=== PATIENT | male | born 2000 | race Caucasian/White ===

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

== ENCOUNTER 2018-08-30 19:52 | Inpatient (IN) | payer OTHER ==
[2018-08-30 21:31] LABS: Amphetamine Screen,Urine Detected (NotDetected); Benzodiazepines Screen,Urine Not Detected (NotDetected); Cocaine Screen,Urine Not Detected (NotDetected); Opiate Screen,Urine Not Detected (NotDetected); Phencyclidine Screen,Urine Not Detected (NotDetected); Tricyclic Antidepressant,Urine Not Detected (NotDetected); Urn Cannabinoid Scrn Detected (NotDetected)
[2018-08-30 21:32] LABS: Barbiturate Screen,Urine Not Detected (NotDetected); Methadone Screen, Urine Not Detected (NotDetected); Oxycodone Screen, Urine Not Detected (NotDetected)
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
[2018-08-30] MEDS ORDERED: ZIPRASIDONE 20 MG VIAL IM PRN (23:17)
[2018-08-30] MEDS ORDERED: MAG HYDROX/AL HYDROX/SIMETH 30 ML CUP PO PRN (23:17)
[2018-08-30] MEDS ORDERED: ACETAMINOPHEN TAB 325 MG TAB PO PRN (23:17)
[2018-08-30] MEDS ORDERED: MAGNESIUM HYDROXIDE 2,400 MG/10 ML CUP PO PRN (23:17)
[2018-08-30] MEDS ORDERED: LORazepam 2 MG/ML INJ IM PRN (23:22)
[2018-08-31] MEDS: LORazepam 1 MG TAB PO PRN ×2 (00:54→12:00)
[2018-08-31 01:33] LABS: Amorphous Sediment,Urine Rare /hpf; Appearance,Urine Clear (Clear); Bacteria,Urine Rare /hpf; Bilirubin,Urine Negative (Negative); Blood,Urine Trace (Negative); Color,Urine Yellow; Glucose,Urine (UA) Negative (Negative); Hyaline Casts,Urine 23 /lpf (0-2); Ketones,Urine 2+ (Negative); Leukocyte Esterase,Urine Small (Negative); Mucus,Urine Occasional /hpf; Nitrite,Urine Negative (Negative); Protein,Urine 2+ (Negative); RBC,Urine 10 /hpf (0-5); Specific Gravity,Urine 1.035 (1.001-1.035); Squamous Epithelial Cell,Urine <1 /hpf (0-4); WBC,Urine 51 /hpf (0-5)
[2018-08-31] MEDS: NICOTINE 14MG/24HR PATCH TRANSDERM SCH ×3 (02:01→10:40)
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
[2018-08-31 09:05] LABS: Basophils # (A) 0.1 k/uL (0-0.2); Basophils % (A) 1 %; Eosinophils # (A) 0.3 k/uL (0-0.7); Eosinophils % (A) 3 %; HCT 48.4 % (39.0-53.0); HGB 15.8 gm/dL (13.0-17.5); Lymphocytes # (A) 1.3 k/uL (1.0-4.8); Lymphocytes % (A) 16 %; MCH 29.2 pg (25.0-35.0); MCHC 32.6 g/dL (31.0-37.0); MCV 89.6 fL (80.0-100.0); Mean Platelet Volume 7.2; Monocytes # (A) 0.5 k/uL (0-1.0); Monocytes % (A) 6 %; Neutrophils # (A) 6.1 k/uL (1.3-7.7); Neutrophils % (A) 72 %; Platelet Count 190 k/uL (150-450); WBC 8.5 k/uL (4.0-11.0)
[2018-08-31 09:31] LABS: ALT 23 U/L (21-72); AST 32 U/L (17-59); African American GFR (CKD) >90 (>60 ml/min/1.73 sqM); Albumin 4.8 g/dL (3.5-5.0); Alkaline Phosphatase 75 U/L (38-126); Anion Gap 8 mmol/L; Blood Urea Nitrogen 16 mg/dL (9-20); Calcium 10.1 mg/dL (8.4-10.2); Carbon Dioxide 29 mmol/L (22-30); Chloride 105 mmol/L (98-107); Glucose 82 mg/dL (74-99); Potassium 4.3 mmol/L (3.5-5.1); Sodium 142 mmol/L (137-145); Total Bilirubin 0.8 mg/dL (0.2-1.3); Total Protein 7.9 g/dL (6.3-8.2)
--- NOTE | 2018-08-31 11:48 | P.HP ---
Psychiatric H&P - . History & Physical: Allergies Allergy/AdvReac Type Severity Reaction Status Date / Time No Known Allergies Allergy Verified 08/31/18 02:46 Vital Signs Temp 97.8 F 08/31/18 06:24 Pulse 83 08/31/18 06:24 Resp 14 08/31/18 06:24 BP 120/66 08/31/18 06:24 Pulse Ox 98 08/30/18 19:56 Intake & Output 08/30/18 08/31/18 08/31/18 18:59 06:59 18:59 Weight 67.132 kg 67.132 kg Laboratory Last Values WBC 8.5 k/uL (4.0-11.0) 08/31/18 08:42 RBC 5.40 m/uL (4.30-5.90) 08/31/18 08:42 Hgb 15.8 gm/dL (13.0-17.5) 08/31/18 08:42 Hct 48.4 % (39.0-53.0) 08/31/18 08:42 MCV 89.6 fL (80.0-100.0) 08/31/18 08:42 MCH 29.2 pg (25.0-35.0) 08/31/18 08:42 MCHC 32.6 g/dL (31.0-37.0) 08/31/18 08:42 RDW 15.0 % (11.5-15.5) 08/31/18 08:42 Plt Count 190 k/uL (150-450) 08/31/18 08:42 Neutrophils % 72 % 08/31/18 08:42 Lymphocytes % 16 % 08/31/18 08:42 Monocytes % 6 % 08/31/18 08:42 Eosinophils % 3 % 08/31/18 08:42 Basophils % 1 % 08/31/18 08:42 Neutrophils # 6.1 k/uL (1.3-7.7) 08/31/18 08:42 Lymphocytes # 1.3 k/uL (1.0-4.8) 08/31/18 08:42 Monocytes # 0.5 k/uL (0-1.0) 08/31/18 08:42 Eosinophils # 0.3 k/uL (0-0.7) 08/31/18 08:42 Basophils # 0.1 k/uL (0-0.2) 08/31/18 08:42 Sodium 142 mmol/L (137-145) 08/31/18 08:42 Potassium 4.3 mmol/L (3.5-5.1) 08/31/18 08:42 Chloride 105 mmol/L (98-107) 08/31/18 08:42 Carbon Dioxide 29 mmol/L (22-30) 08/31/18 08:42 Anion Gap 8 mmol/L 08/31/18 08:42 BUN 16 mg/dL (9-20) 08/31/18 08:42 Creatinine 0.79 mg/dL (0.66-1.25) 08/31/18 08:42 Est GFR (CKD-EPI)AfAm >90 (>60 ml/min/1.73 sqM) 08/31/18 08:42 Est GFR (CKD-EPI)NonAf >90 (>60 ml/min/1.73 sqM) 08/31/18 08:42 Glucose 82 mg/dL (74-99) 08/31/18 08:42 Calcium 10.1 mg/dL (8.4-10.2) 08/31/18 08:42 Total Bilirubin 0.8 mg/dL (0.2-1.3) 08/31/18 08:42 AST 32 U/L (17-59) 08/31/18 08:42 ALT 23 U/L (21-72) 08/31/18 08:42 Alkaline Phosphatase 75 U/L (38-126) 08/31/18 08:42 Total Protein 7.9 g/dL (6.3-8.2) 08/31/18 08:42 Albumin 4.8 g/dL (3.5-5.0) 08/31/18 08:42 TSH 1.710 mIU/L (0.465-4.680) 08/31/18 08:42 Urine Color Yellow 08/30/18 20:47 Urine Appearance Clear (Clear) 08/30/18 20:47 Urine pH 7.0 (5.0-8.0) 08/30/18 20:47 Ur Specific [place] 1.035 (1.001-1.035) 08/30/18 20:47 Urine Protein 2+ (Negative) H 08/30/18 20:47 Urine Glucose (UA) Negative (Negative) 08/30/18 20:47 Urine Ketones 2+ (Negative) H 08/30/18 20:47 Urine Blood Trace (Negative) H 08/30/18 20:47 Urine Nitrite Negative (Negative) 08/30/18 20:47 Urine Bilirubin Negative (Negative) 08/30/18 20:47 Urine Urobilinogen 2.0 mg/dL (<2.0) 08/30/18 20:47 Ur Leukocyte Esterase Small (Negative) H 08/30/18 20:47 Urine RBC 10 /hpf (0-5) H 08/30/18 20:47 Urine WBC 51 /hpf (0-5) H 08/30/18 20:47 Urine WBC Clumps Rare /hpf (None) H 08/30/18 20:47 Ur Squamous Epith Cells <1 /hpf (0-4) 08/30/18 20:47 Amorphous Sediment Rare /hpf (None) H 08/30/18 20:47 Urine Bacteria Rare /hpf (None) H 08/30/18 20:47 Hyaline Casts 23 /lpf (0-2) H 08/30/18 20:47 Urine Mucus Occasional /hpf (None) H 08/30/18 20:47 Urine Opiates Screen Not Detected (NotDetected) 08/30/18 20:47 Ur Oxycodone Screen Not Detected (NotDetected) 08/30/18 20:47 Urine Methadone Screen Not Detected (NotDetected) 08/30/18 20:47 Ur Propoxyphene Screen Not Detected (NotDetected) 08/30/18 20:47 Ur Barbiturates Screen Not Detected (NotDetected) 08/30/18 20:47 U Tricyclic Antidepress Not Detected (NotDetected) 08/30/18 20:47 Ur Phencyclidine Scrn Not Detected (NotDetected) 08/30/18 20:47 Ur Amphetamines Screen Detected (NotDetected) H 08/30/18 20:47 U Methamphetamines Scrn Not Detected (NotDetected) 08/30/18 20:47 U Benzodiazepines Scrn Not Detected (NotDetected) 08/30/18 20:47 Urine Cocaine Screen Not Detected (NotDetected) 08/30/18 20:47 U Marijuana (THC) Screen Detected (NotDetected) H 08/30/18 20:47 08/31/18 11:37 IDENTIFYING DATA: This patient is a 17-year-old single male who was admitted to the mental health unit through the emergency room for suicidal and homicidal ideation as well as aggressive behavior. HPI: The patient was admitted after he had made statements that he wanted to shoot himself with a gun and he also made statements of harming his parents. He had been verbally and physically aggressive at home. The police were called and the patient was transported to the hospital. He states that this all started after recent relationship discord in the home involving his girlfriend and his brother's girlfriend. He states his brother's girlfriend was quite antagonizing to everyone in the home. The patient's brother and his brother's girlfriend moved out and he states things were better but there were still discord. He describes his parents as not listening to him not caring and preferring that he isolates in his room. He describes his mood as being sad he states he's been tearful on a weekly basis. He indicates his sleep appetite and energy are stable. He states he did make suicidal thoughts to see what his parents would do. He does admit to having feelings of anger he admits that he had been punching things. The patient signed a consent allowing us to speak with his mother. His mother and father were on the call together. They indicate that the patient came home the other day from work he was angry they found him on top of his girlfriend who was yelling for help. The patient began punching doors punching his father in using profanity. His mother states that he had been demonstrating behavioral changes over the last 1.5 months. The patient told her he was hearing voices he could look down at himself as sort of an out of body experience. He reported to his mother he was doing things he couldn't control and made threats of harming himself and them. They describe their son as someone who is happy go chin and friendly. There has been some suspicion he may have been experiencing hallucinations at a younger age. They indicate that he is typically a nonviolent person. His father states they do have several firearms in the home but they're locked in a safe and they were untouched by the patient. PAST PSYCHIATRIC HISTORY: Her inpatient psychiatric hospitalizations, no history of suicide attempts he's never been prescribed any psychotropic medication. He does have a therapist that sees the patient in the home and has visited approximate 4 times. They called this individual yesterday when the patient was aggressive. The patient's mother states that his current therapist feels that he may have dissociative identity disorder. 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 ALLERGIES: NO KNOWN DRUG ALLERGIES MEDICATIONS: None CHEMICAL DEPENDENCY HISTORY: The patient reports no use of alcohol. He reports using marijuana on a daily basis. He states he will use ecstasy at least monthly for the last few years. No use of methamphetamine but he will use Adderall monthly. He states he was using acid and mushrooms but none in the last 2 months. He's never been placed in residential treatment for chemical dependency reasons. FAMILY PSYCHIATRIC HISTORY: None reported other than maternal grandfather committing suicide FAMILY CHEMICAL DEPENDENCY HISTORY: None reported SOCIAL HISTORY: The patient is 17 years old she single he has no children he resides with both parents in [place]. He graduated high school through an alternative schooling program he did have special education help. 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 The patient has 1 older brother. No history of service. Recreationally the patient likes music he states he enjoys composing it electronically. Legal history arrested for possession of marijuana no abuse history MENTAL STATUS EXAM: The patient is a thin male appearing his stated age. He does have some cystic acne he has long hair. Eye contact is intermittent. He is dressed in his own clothing. He shakes his legs constantly throughout our interaction. He describes his mood as being "sad" he is tearful several times during the session and then reconstitutes. He admits to making suicidal and homicidal statements yesterday but states he does not feel that way now. There is some bizarre quality to how he explains the events precipitating this admission. There is a flavor of paranoia as he describes the story. Overtly he denies being watched followed or fearing for his safety. He endorses no ideas of reference. Thought process can be linear he can be circumstantial or tangential at times. He demonstrates no loose associations or flight of ideas. He demonstrates no verbal or physical aggressiveness he demonstrates no involuntary repetitive movements. STRENGTHS/WEAKNESSES: Strengths: Support from parents, housing, employment weaknesses: Substance use INTELLECTUAL FUNCTIONING: Below average IMPRESSIONS: [] 1. Psychosis unspecified, rule out substance-induced psychosis, rule out primary psychotic etiology, cannabis use disorder rule out stimulant and hallucinogen use disorders 2. History of craniosynostosis PLAN: The patient has been admitted to the mental health unit he is willing to sign in voluntarily. We reviewed his presenting symptoms and treatment options. I we will proceed with prescribing Abilify 10 mg daily to reduce symptoms of psychosis. I did have a lengthy discussion with the patient's parents with his written permission he has been seen by internal medicine for routine history and physical exam. Social work has met with the patient to complete a psychosocial assessment. He is instructed to participate fully in groups we will monitor him for safety and encourage full participation in the milieu we will discuss his use of substances and consider inpatient chemical dependency treatment. We will involve his family in treatment and discharge planning as he will allow.
[2018-08-31] MEDS: ARIPiprazole 10 MG TAB PO SCH (12:00)
[2018-09-01] MEDS: ARIPiprazole 10 MG TAB PO SCH (08:45)
[2018-09-01] MEDS: NICOTINE 14MG/24HR PATCH TRANSDERM SCH (08:45)
--- NOTE | 2018-09-01 10:18 | P.PN ---
Progress Note - Text Interval history: The patient is found in group he follows me to an interview room. He indicates that his mood is calm and that he is trying to remain positive. He states he is trying to "balance my personal needs with yours". He indicates he slept yesterday and needed to catch up on sleep. Appetite stable. He did have a phone conversation with his parents which she found supportive. He indicates that they need to work on their communication. He has no questions or concerns regarding the Abilify. At length we discussed the need for him to discontinue use of marijuana and other illicit drugs. Mental status exam: The patient is found in group he seated calmly and appeared distracted. In observing his gait he keeps his head forward and there is no arm swing. Once seated in the interview room eye contact is intermittent. He seems to look from side to side. He has some spontaneous speech but mainly answers questions asked. There are some exaggerated pauses. He demonstrates tearfulness during the session but does quickly reconstitute. He reports no thoughts of self-harm or harm to others he is endorsing no auditory or visual hallucinations or specific delusions. It may be that he is experiencing some delusional thought content that he is not disclosing. He demonstrates no verbal or physical aggressiveness. There are no observed involuntary repetitive movements. He remains oriented to person place and date. Plan: The patient will continue on the Abilify as written. We may consider titrating the dose. We anticipate his family will visit this evening. We will look further input after that visit. We will discuss his progress during treatment team. We will continue to monitor him for safety. Vital signs reviewed.
[2018-09-01] MEDS: LORazepam 1 MG TAB PO PRN (19:29)
[2018-09-02] MEDS: NICOTINE 14MG/24HR PATCH TRANSDERM SCH (08:06)
[2018-09-02] MEDS: ARIPiprazole 10 MG TAB PO SCH (08:06)
--- NOTE | 2018-09-02 10:04 | P.PN ---
Progress Note - Text Interval history: The patient is found in group he follows me to an interview room. He describes some feelings of frustration that he still here on the mental health unit. He indicates that his parents did visit last night. He states it was a very emotional visit but a good visit. Later in the session he states that nursing had to remove him from the visit due to his reactions. He indicates he was not loud or aggressive. I will confer with staff during treatment team meeting to discuss further. He indicates he sleeping at night indicates appetite stable. He reports attending groups but for the most part passively. We reviewed his psychotropic medication we discussed titrating the Abilify further he offers no objection. Mental status exam: The patient is alert he is dressed in his own clothing. He has long hair he is wearing it down today. Eye contact is poor he frequently looks down or to the side. He demonstrates mild psychomotor slowing. Speech is fluent. He provides answers to questions but has little spontaneous speech. He asks "what state do want to put me in before I can leave?". He reports no thou ghts of self-harm or harm to others. He is indicating no symptoms of psychosis however he may be underreporting. He demonstrates no verbal or physical aggressiveness. He does become tearful during the session. Insight and judgment limited. Plan: I will increase the patient's Abilify to 15 mg daily. We will confer with his family regarding last night visit. At treatment team meeting we'll discuss the patient's participation in behavior over the last 24 hours. Vital signs reviewed. We will continue to monitor him for safety and encourage full participation in the milieu. I suspect that he is underreporting symptoms of psychosis but we will continue to evaluate.
[2018-09-03] MEDS: NICOTINE 14MG/24HR PATCH TRANSDERM SCH (08:15)
[2018-09-03] MEDS: ARIPiprazole 15 MG TAB PO SCH (08:15)
--- NOTE | 2018-09-03 10:19 | P.PN ---
Progress Note - Text Interval history: The patient is found in group he follows me to an interview room. He indicates his mood is better. He states his thoughts are flowing better. He states he can "feel the Abilify". He states he's had good conversations with his parents and they're hoping to have him home soon. He continues to report his desire to be discharged soon. He is describing no side effects from the Abilify. He states he slept well last night staff recorded he slept 5 hours. He indicates his appetite is stable. He has been attending groups. Mental status exam: The patient is a thin male. He has long hair but has pulled back today. Eye contact is much improved. Affect is brighter he is more interactive in discussion up until we discuss discharge planning. He reports his mood is improving. He denies having any acute suicidal or homicidal ideation intent or plan. He is reporting no auditory or visual hallucinations. Again he may be withholding no symptoms. Insight and judgment limited. He is demonstrating no verbal or physical aggressiveness. He demonstrates no involuntary repetitive movements. Plan: The patient will continue on the Abilify which is just been increased to 15 mg daily. He is demonstrating some clinical improvement. We will continue monitoring her for safety. Social work will be asked to arrange a support meeting. If he demonstrates further improvement/stability he may be appropriate for discharge as soon as Thursday. Vital signs reviewed.
[2018-09-03] MEDS: LORazepam 1 MG TAB PO PRN (19:44)
[2018-09-04] MEDS: ARIPiprazole 15 MG TAB PO SCH (08:26)
[2018-09-04] MEDS: NICOTINE 14MG/24HR PATCH TRANSDERM SCH (08:26)
--- NOTE | 2018-09-04 13:02 | P.PN ---
Progress Note - Text Progress Note Date: 09/04/18 Interval history: Patient was seen in cross coverage today. Reports that his mood is doing better. He feels like he can focus better on the Abilify. He does not voice any adverse side effects. He does say he is excited for a family meeting tomorrow. Mental status exam: He is alert and cooperative with the interview. Speech is fluent, not rapid or pressured. Thought processes are organized. His mood appears improved. He denies any thoughts of harm to self or others. He denies any hallucinations. He does not make any delusional statements. Plan: Patient will be maintained on current psychotropic medication regimen continue to monitor for any medication side effects and monitor his ongoing response to treatment. We'll continue to cover this patient through the weekend.
[2018-09-05 06:44] VITALS: PULSE 56; RESP 18
[2018-09-05] MEDS: ARIPiprazole 15 MG TAB PO SCH (08:13)
[2018-09-05] MEDS: NICOTINE 14MG/24HR PATCH TRANSDERM SCH (08:13)
--- NOTE | 2018-09-05 13:42 | P.PN ---
Progress Note - Text Progress Note Date: 09/05/18 Interval history: Patient is seen again in cross coverage today. He reports that his mood is doing better. He did have a good supportive meeting with his family today. He slept well last night. He seems to be eating well. He is attending groups. He does not voice any adverse psychotropic medication side effects. He does describe having some nightmares but does not think is related to medication. Mental status exam: He is alert and cooperative with the interview. His speech is fluent, not rapid or pressured. Thought processes are organized. He denies any thoughts of harm to self or others. He does not report need delusions or loosening. He does not show any agitation. Plan: Patient be maintained on current psychotropic medication regimen. He is showing improved status. Continue to monitor for any medication side effects and ongoing response to treatment.
[2018-09-06 07:06] VITALS: BP 135/80; TEMP 97.8
[2018-09-06] MEDS: ARIPiprazole 15 MG TAB PO SCH (08:02)
[2018-09-06] MEDS: NICOTINE 14MG/24HR PATCH TRANSDERM SCH ×2 (08:11→12:13)
--- NOTE | 2018-09-06 08:59 | P.DS ---
Providers Date of admission: 08/30/18 23:16 Expected date of discharge: 09/06/18 Attending physician: Marvel Layne Consults: 08/31/18 06:50 Consult Physician Routine Consulting Provider: Ester Collazo Consult Reason/Comments: H & P medical management Do you want consulting provider notified?: Already Contacted Primary care physician: Rolando Reedudi - Discharge Diagnosis(es) (1) Unspecified psychosis Current Visit: Yes Status: Acute Priority: High (2) Cannabis use disorder, moderate, dependence Current Visit: Yes Status: Acute Priority: Medium Hospital Course: Brief summary of admission note: This patient is a 17-year-old single male who was admitted to the mental health unit her suicidal and homicidal ideation as well as aggressive behavior. The patient made statements that he wanted to shoot himself with a gun and made statements of harming his parents. He had been verbally and physically aggressive at home. The police were called and the patient was transported to the hospital. He reports stressors include recent relationship discord in the home involving his brother's girlfriend in his own girlfriend. He describes thoughts his parents were not listening to him and didn't care for him. He described feeling tearful on a regular basis. He reported feelings of anger that were more difficult to control and he had been punching things. Additionally the patient admitted that he had been using several substances. He reported using marijuana daily basis he was using ecstasy at least monthly he would use Adderall acid and mushrooms. He did have amphetamines and marijuana in his urine drug screen upon presentation. For full details please refer to my psychiatric evaluation dated 08/31/2018. Summary of hospital course: The patient was admitted to the mental health unit he did sign in voluntarily. He signed a consent allowing us to speak with his parents. I called and spoke with his mother and father. They provided collateral information. We discussed the patient's use of substances which they were unaware of. We decided to initiate Abilify to treat his symptoms of psychosis and the may serve as a mood stabilizer. The patient was cooperative with the medication recommendation and has reported that the medication has helped him. He was seen by internal medicine for routine history and physical exam. He has been participating in the milieu he is demonstrated no agitated behavior. abrasive worker spent with the patient to complete a psychosocial assessment arrange a support meeting and for discharge planning purposes. Social work facilitated a support meeting over the weekend those notes were reviewed. At this time the patient feels he is safe to return home. He states he's had good visits with his family over the weekend. He reports no suicidal or homicidal ideation intent or plan. Mental status exam: The patient is alert he presents with adequate hygiene grooming. He is seated calmly in the chair. Eye contact is appropriate. Affect is brighter. He reports his mood is good. Affect is congruent. He denies having any suicidal or homicidal ideation intent or plan. He reports no auditory or visual hallucinations or any specific delusions. There is no observed evidence of psychosis at this time. He demonstrates no tangential thinking loose associations or flight of ideas. He does not appear hypomanic or manic. He demonstrates no verbal or physical aggressiveness. He demonstrates no involuntary repetitive movements. He describes future oriented thinking as he plans to return home and spend time with his family and return to work. He is oriented to person place and date. Impressions 1. Psychosis unspecified, rule out substance-induced psychosis, rule out primary psychotic etiology, cannabis use disorder, rule out stimulant and hallucinogen use disorders Plan: The patient will be discharged mental health unit today to return residing with his parents. In my conversation with his parents they have confirmed that the weapons in the home are secure and not accessible by the patient. Social work will assist in arranging outpatient follow-up for mental health services. The patient will continue on Abilify 15 mg daily. The patient is instructed to abstain from any use of alcohol marijuana or any illicit drug. We discussed that this will provoke symptoms of psychosis and mood instability as well as elevate his safety risk. He does not wish to participate in inpatient chemical dependency treatment. At this time there is no imminent safety risk he is appropriate for transition back to outpatient care. He is instructed to return to the hospital if any acute safety concerns. Patient Condition at Discharge: Stable Plan - Discharge Summary Discharge Rx Participant: No New Discharge Prescriptions: New ARIPiprazole [Abilify] 15 mg PO DAILY #30 tab Nicotine 14Mg/24Hr Patch [Habitrol] 1 patch TRANSDERM DAILY #14 patch Discharge Medication List ARIPiprazole [Abilify] 15 mg PO DAILY #30 tab 09/06/18 [Rx] Nicotine 14Mg/24Hr Patch [Habitrol] 1 patch TRANSDERM DAILY #14 patch 09/06/18 [Rx] Follow up Appointment(s)/Referral(s): Rolando Ballesteros MD [Primary Care Provider] - 1-2 days Activity/Diet/Wound Care/Special Instructions: Activity and diet as tolerated. NO guns or weapons in the home. REFRAIN from alcohol and drugs not prescribed by your physician. Attend all follow up appointments as scheduled. Take all medications as prescribed. If in need of medication refills, please go to your primary care physician, or to your out patient psychiatric provider. If in crisis, please call , or go to the nearest ER.
== END 2018-09-06 13:42 | disposition home or self-care (01) | DRG 885 ==
LOC: EC 19:52 → SUPCPDRO 19:52 → 3MHU 23:16
PROVIDERS: ADMIT Psychiatry & Neurology Psychiatry; ATTEND Psychiatry & Neurology Psychiatry
DX: F29 Unspecified psychosis not due to a substance or known physiological condition (principal); R45.851 Suicidal ideations; R45.850 Homicidal ideations; F12.20 Cannabis dependence, uncomplicated; S40.811A Abrasion of right upper arm, initial encounter; L70.0 Acne vulgaris; F17.210 Nicotine dependence, cigarettes, uncomplicated; Z71.6 Tobacco abuse counseling; Z87.798 Personal history of other (corrected) congenital malformations
CPT/HCPCS: 80053; 80306; 81001; 82075; 84443; 85025; 99285

== ENCOUNTER 2019-07-08 03:01 | Inpatient (IN) | payer MEDICAID, OTHER ==
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
[2019-07-08 04:52] LABS: Amphetamine Screen,Urine Not Detected (NotDetected); Barbiturate Screen,Urine Not Detected (NotDetected); Benzodiazepines Screen,Urine Not Detected (NotDetected); Cocaine Screen,Urine Not Detected (NotDetected); Methadone Screen, Urine Not Detected (NotDetected); Opiate Screen,Urine Not Detected (NotDetected); Oxycodone Screen, Urine Not Detected (NotDetected); Phencyclidine Screen,Urine Not Detected (NotDetected); Tricyclic Antidepressant,Urine Not Detected (NotDetected); Urn Cannabinoid Scrn Detected (NotDetected)
[2019-07-08] MEDS ORDERED: LORazepam 2 MG/ML INJ IM STA (04:52)
[2019-07-08] MEDS ORDERED: diphenhydrAMINE 50 MG/ML 1 ML VIAL IM STA (04:52)
[2019-07-08] MEDS ORDERED: MAGNESIUM HYDROXIDE 2,400 MG/10 ML CUP PO PRN (06:19)
[2019-07-08] MEDS ORDERED: MAG HYDROX/AL HYDROX/SIMETH 30 ML CUP PO PRN (06:19)
[2019-07-08 06:57] LABS: Appearance,Urine Clear (Clear); Bilirubin,Urine Negative (Negative); Blood,Urine Negative (Negative); Color,Urine Light Yellow; Glucose,Urine (UA) Negative (Negative); Ketones,Urine 1+ (Negative); Leukocyte Esterase,Urine Negative (Negative); Nitrite,Urine Negative (Negative); Protein,Urine Negative (Negative); Specific Gravity,Urine 1.008 (1.001-1.035); Urobilinogen,Urine <2.0 mg/dL (<2.0)
[2019-07-08] MEDS: NICOTINE 14MG/24HR PATCH TRANSDERM SCH (08:52)
[2019-07-08 11:58] LABS: Basophils % (A) 0 %; Eosinophils # (A) 0.1 k/uL (0-0.7); Eosinophils % (A) 1 %; HCT 48.2 % (39.0-53.0); HGB 16.5 gm/dL (13.0-17.5); Lymphocytes # (A) 2.5 k/uL (1.0-4.8); Lymphocytes % (A) 26 %; MCH 30.2 pg (25.0-35.0); MCHC 34.2 g/dL (31.0-37.0); MCV 88.4 fL (80.0-100.0); Mean Platelet Volume 7.5; Monocytes # (A) 0.5 k/uL (0-1.0); Monocytes % (A) 5 %; Neutrophils % (A) 64 %; Platelet Count 220 k/uL (150-450); RBC 5.45 m/uL (4.30-5.90); RDW 12.7 % (11.5-15.5); WBC 9.4 k/uL (4.0-11.0)
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
[2019-07-08 12:45] LABS: ALT 16 U/L (4-49); AST 32 U/L (17-59); African American GFR (CKD) >90 (>60 ml/min/1.73 sqM); Albumin 4.6 g/dL (3.5-5.0); Alkaline Phosphatase 65 U/L (38-126); Anion Gap 8 mmol/L; Bilirubin,Unconjugated 0.9 mg/dL (0.0-1.1); Blood Urea Nitrogen 13 mg/dL (9-20); Calcium 10.1 mg/dL (8.4-10.2); Carbon Dioxide 28 mmol/L (22-30); Chloride 104 mmol/L (98-107); Cholesterol 140 mg/dL (<200); Glucose 74 mg/dL (74-99); HDL Cholesterol 51 mg/dL (40-60); LDL Cholesterol,Calculated 73 mg/dL (0-99); Non-African American GFR(CKD) >90 (>60 ml/min/1.73 sqM); Potassium 4.4 mmol/L (3.5-5.1); Sodium 140 mmol/L (137-145); Total Bilirubin 0.8 mg/dL (0.2-1.3); Total Protein 7.4 g/dL (6.3-8.2); Triglycerides 80 mg/dL (<150)
--- NOTE | 2019-07-08 14:56 | P.MDCNMH ---
History of Present Illness H&P Date: 07/08/19 Chief Complaint: Suicidal and homicidal ideations 18-year-old male presented to the hospital because of aggressive behavior at home as well as suicidal ideation. He just found out that his girlfriend was treated on him. He has been refusing to take any psych meds. He does not have any other health conditions. Currently denies having any chest pain or any other pain, no shortness of breath. No dizziness, no weakness, no nausea or vomiting. No recent illness. No fevers or chills. No diarrhea. No urinary symptoms. Review of Systems Complete review of system performed, pertinent positives per HPI, otherwise negative Past Medical History Additional Past Medical History / Comment(s): cranial cystosis, DID History of Any Multi-Drug Resistant Organisms: None Reported Additional Past Surgical History / Comment(s): head sx Past Psychological History: No Psychological Hx Reported Smoking Status: Current every day smoker Past Alcohol Use History: None Reported Past Drug Use History: None Reported Medications and Allergies Home Medications Medication Instructions Recorded Confirmed Type ARIPiprazole [Abilify] 15 mg PO DAILY #30 tab 09/06/18 Rx Nicotine 14Mg/24Hr Patch [Habitrol] 1 patch TRANSDERM DAILY #14 patch 09/06/18 Rx Allergies Allergy/AdvReac Type Severity Reaction Status Date / Time No Known Allergies Allergy Verified 07/08/19 03:14 Physical Exam Vitals: Vital Signs Temp Pulse Pulse Resp BP BP Pulse Ox 07/08/19 12:00 98.5 F 07/08/19 06:51 97.8 F 103 H 18 113/72 95 07/08/19 06:00 92 20 168/78 98 07/08/19 03:05 98 F 98 20 180/87 97 Intake and Output 07/07/19 07/08/19 07/08/19 22:59 06:59 14:59 Other: Weight 63.866 kg Constitutional: No acute distress, conversant, pleasant Eyes:Anicteric sclerae, moist conjunctiva, no lid-lag, PERRLA, ENMT: Oropharynx clear, no erythema, exudates Neck: Supple, FROM, no masses, or JVD, No carotid bruits, No thyromegaly Lungs: Clear to auscultation, Clear to percussion, Normal respiratory effort, no accessory muscle use Cardiovascular: Heart regular in rate and rhythm, No murmurs, gallops, or rubs, No peripheral edema Abdominal: Soft, Nontender, no guarding, rebound or rigidity, Normoactive bowel sounds, No hepatomegaly, No splenomegaly, No palpable mass Skin: Normal temperature, tone, texture, turgor, no induration, No subcutaneous nodules, No rash, lesions, No ulcers Extremities: No digital cyanosis, No clubbing, Pedal pulses intact and symmetrical, Radial pulses intact and symmetrical, No calf tenderness Neuro: Muscles Strength 5/5 in all 4 extremities, Sensation to light touch grossly present throughout, Cranial nerves II-XII grossly intact, no focal sensory deficits Cranial Nerve Examination - Cranial Nerves Cranial Nerve II- Optic: Intact Cranial Nerve III- Oculomotor: Intact Cranial Nerve IV- Trochlear: Intact Cranial Nerve V- Trigeminal: Intact Cranial Nerve - Abducens: Intact Cranial Nerve VII- Facial: Intact Cranial Nerve VIII- Auditory: Intact Cranial Nerve IX- Glossopharyngeal: Intact Cranial Nerve X- Vagus: Intact Cranial Nerve XI- Accessory: Intact Cranial Nerve XII- Hypoglossal: Intact Results CBC & Chem 7: 07/08/19 11:21 07/08/19 11:21 Labs: Abnormal Lab Results - Last 24 Hours (Table) 07/08/19 07/08/19 Range/Units 04:25 04:25 Urine Ketones 1+ H (Negative) U Marijuana (THC) Screen Detected H (NotDetected) Assessment and Plan Plan: Suicidal and homicidal ideations Management per psychiatry Routine health maintenance TSH, CMP, CBC, UA all okay Awaiting A1c Marijuana abuse and smoking Patient advised to quit
[2019-07-08] MEDS: LORazepam 1 MG TAB PO PRN (17:12)
[2019-07-08] MEDS: ZIPRASIDONE 20 MG VIAL IM PRN (17:50)
[2019-07-08 20:02] LABS: Hemoglobin A1C 5.3 % (4.0-6.0)
[2019-07-09] MEDS: NICOTINE 14MG/24HR PATCH TRANSDERM SCH (08:28)
[2019-07-09] MEDS: LORazepam 1 MG TAB PO PRN ×2 (08:28→17:04)
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
[2019-07-09] MEDS: lamoTRIgine 25 MG TAB PO SCH ×2 (09:12→21:02)
[2019-07-10] MEDS: LORazepam 1 MG TAB PO PRN (00:23)
[2019-07-10] MEDS: lamoTRIgine 25 MG TAB PO SCH ×2 (08:57→21:28)
[2019-07-10] MEDS: NICOTINE 14MG/24HR PATCH TRANSDERM SCH (08:57)
--- NOTE | 2019-07-10 11:00 | P.PN ---
Progress Note - Text Progress Note Date: 07/10/19 Interval history: Patient was seen wandering the hallways and was directable and agreeable to s peak with commercial real estate underwriter. Patient appeared to be somewhat cooperative however was mildly bizarre in some of his answers. Patient was logical however was concrete. He states that his mood is "getting there". He claims that he hasn't felt much of the effect of the Lamictal at this point however hesitant in taking it. He denies any rashes at this time and has been monitoring skin. He admits to some anxiety at times. He states that he slept well last night. At this time patient denies any suicidal or homicidal ideations intent or plan. Denies any Auditory or visual hallucinations. Patient denies any side effects from the medications and has been compliant with meds. Mental status exam: General Appearance: Patient appears to be older than stated age is alert, attempts to cooperate is directable and attempts to cooperate. Patient has long hair and appears to have poor hygiene. Behavior: No agitated behavior. Patient is calm and directable appears less anxious. Speech: Patient's speech is fluent and nonpressured. Mood/Affect: Mood is improving mildly, affect is congruent Suicidality/Homicidality: Patient denies having any suicidal or homicidal ideation intent or plan. Perceptions: Patient denies any auditory or visual hallucinations. Though content/process: There is no evidence of any delusional thought content and thought process is linear and goal-directed. Memory and concentration: AOX3, grossly intact for the purposes of this session Judgment and insight: Poor Assessment/Plan: Continue with current diagnosis. Patient continues to meet criteria for inpatient psychiatric admission for symptom stabilization and safety. Will increase Lamictal 25 mg twice a day for mood stabilization/depression. At this time patient is not willing to take an antipsychotic. Monitor for medication compliance and for any psychotropic medication side effects. Will continue to monitor ongoing response to treatment. Encouraged participation in milieu.
[2019-07-10] MEDS: ACETAMINOPHEN TAB 325 MG TAB PO PRN (21:30)
[2019-07-11] MEDS: NICOTINE 14MG/24HR PATCH TRANSDERM SCH (08:45)
[2019-07-11] MEDS: lamoTRIgine 25 MG TAB PO SCH ×2 (08:45→21:40)
--- NOTE | 2019-07-11 12:07 | P.PN ---
Subjective Progress Note Date: 07/11/19 The patient seen in the chart was reviewed. The patient reports doing "good". The patient reports fair sleep and appetite. He reports attending milieu therapy and and participates in groups. The patient reports good sleep and appetite. He continues to show some bizarre behavior but denies any auditory or visual hallucinations at this time. The patient's his stated mood was good and affect was less constricted. The patient denies any auditory or visual hallucinations although at times appears to be responding to internal cues. The patient denies any suicidal or homicidal ideations at this time. He denies any side effects on the medications. Objective - Vital Signs Vital signs: Vital Signs Temp 98.2 F 07/11/19 06:15 Pulse 123 H 07/11/19 06:15 Resp 16 07/11/19 06:15 BP 134/85 07/11/19 06:15 Pulse Ox 100 07/09/19 08:00 Intake & Output 07/10/19 07/11/19 07/11/19 18:59 06:59 18:59 Weight 65.9 kg 65.9 kg - Exam Mental Status Exam: General Appearance: Patient appears to be stated age is alert, directable. fPatient has fair eye contact. Behavior: Patient is seated without any agitated behavior. Speech: Patient's speech is goal-directed and nonpressured. soft tone. Mood/Affect: Patient reports their mood/anxiety is improving, affect is congruent Suicidality/Homicidality: Patient denies any active suicidal or homicidal ideations. Perceptions: Patient denies any auditory or visual hallucinations. Though content/process: Paranoia Memory and concentration: AOX3, grossly intact for the purposes of this session. Judgment and insight: Limited - Labs CBC & Chem 7: 07/08/19 11:21 07/08/19 11:21 Assessment and Plan Assessment: IMPRESSIONS: [] 1. Major depressive disorder with psychotic features. Rule out bipolar disorder. 2. History of craniosynostosis Plan: PLAN: The patient was admitted to the behavioral health unit and signed in voluntarily. Precautions: Continue 15 minutes check for safety. Provide the patient individual, group therapy, substance use disorder counseling to give better insight and learn coping skills. Medications: Continue Lamictal 25 mg PO bid. Will initiate discharge planning. Discharge patient to OUTPATIENT services upon a stabilization Expected LOS: 3-5 days
[2019-07-12] MEDS: lamoTRIgine 25 MG TAB PO SCH ×2 (08:33→22:11)
[2019-07-12] MEDS: NICOTINE 14MG/24HR PATCH TRANSDERM SCH (08:33)
--- NOTE | 2019-07-12 12:25 | P.PN ---
Subjective Progress Note Date: 07/12/19 Progress Note Date: 07/12/19 Patient was seen and chart was reviewed. Case discussed with staff. The patient admits to fair energy and fair appetite. The patient reports good sleep last night. At this time patient denies any suicidal or homicidal ideations, intent or plan. Patient denies any auditory, visual hallucinations and denies any paranoia or delusions. The patient shows poor insight into his illness. He reports that the only thing that works for him is "medical marijuana". Patient denies any side effects from the medications and has been compliant with meds. Objective - Vital Signs Vital signs: Vital Signs Temp 98.5 F 07/12/19 06:47 Pulse 74 07/12/19 06:47 Resp 16 07/12/19 06:47 BP 108/59 07/12/19 06:47 Pulse Ox 97 07/12/19 06:47 Intake & Output 07/11/19 07/12/19 07/12/19 18:59 06:59 18:59 Weight 65.9 kg - Exam Mental Status Exam: General Appearance: Patient appears to be stated age is alert, directable. fPatient has fair eye contact. Behavior: Patient is seated without any agitated behavior. Speech: Patient's speech is goal-directed and nonpressured. soft tone. Mood/Affect: Patient reports their mood/anxiety is improving, affect is congruent Suicidality/Homicidality: Patient denies any active suicidal or homicidal ideations. Perceptions: Patient denies any auditory or visual hallucinations. Though content/process: Paranoia Memory and concentration: AOX3, grossly intact for the purposes of this session. Judgment and insight: Limited - Labs CBC & Chem 7: 07/08/19 11:21 07/08/19 11:21 Assessment and Plan Assessment: IMPRESSIONS: [] 1. Major depressive disorder with psychotic features. Rule out bipolar disorder. 2. History of craniosynostosis Plan: PLAN: The patient was admitted to the behavioral health unit and signed in voluntarily. Precautions: Continue 15 minutes check for safety. Provide the patient individual, group therapy, substance use disorder counseling to give better insight and learn coping skills. Medications: Continue Lamictal 25 mg PO bid. Will initiate discharge planning. Discharge patient to OUTPATIENT services upon a stabilization Expected LOS: 3-5 days
[2019-07-12] MEDS: LORazepam 1 MG TAB PO PRN (19:36)
[2019-07-12] MEDS: ZIPRASIDONE 20 MG VIAL IM PRN (19:36)
[2019-07-12] MEDS ORDERED: LORazepam 2 MG/ML INJ IV STA (20:21)
[2019-07-12] MEDS ORDERED: LORazepam 2 MG/ML INJ IM STA (20:24)
--- NOTE | 2019-07-12 21:37 | P.MHFACE ---
Face to Face Restrain/Seclus - Evaluation Patient's Immediate Situation: Endangers self safety, Endangers others' safety, Violent behavior Patient's Reaction to the Intervention: Cooperative, Nervous, Anxious, Restless Patient's Medical & Behavioral Condition: Awake, Alert, Follows directions, Anxious Need to Continue or Terminate Restraint or Seclusion: Continue
[2019-07-13] MEDS: lamoTRIgine 25 MG TAB PO SCH ×2 (09:25→21:02)
[2019-07-13] MEDS: NICOTINE 14MG/24HR PATCH TRANSDERM SCH ×2 (09:26→21:03)
[2019-07-13] MEDS ORDERED: OLANZapine ODT 5 MG TAB PO STA (13:51)
[2019-07-13] MEDS ORDERED: OLANZapine 2.5 MG TAB PO PRN (13:56)
--- NOTE | 2019-07-13 13:56 | P.PN ---
Subjective Progress Note Date: 07/13/19 Progress Note Date: 07/12/19 Patient was seen and chart was reviewed. Case discussed with staff and the event history from last night was reviewed. As per staff charting the patient became abusive towards the staff and was threatening to hurt people and had to be restrained for safety last night. The patient reports that he feels that the staff has been drove to him and has been mistreating him. The patient also reports paranoid ideations about the staff trying to hurt him. He complained of poor sleep last night and is demanding to be discharged. The patient became agitated and hysterical when he was told that he needs to continue treatment and will not be discharged today. The patient was not able to answer any questions after that. Objective - Vital Signs Vital signs: Vital Signs Temp 98.3 F 07/13/19 12:00 Pulse 82 07/13/19 06:39 Resp 16 07/13/19 06:39 BP 150/73 07/13/19 06:39 Pulse Ox 97 07/12/19 20:35 - Exam Mental Status Exam: General Appearance: Patient appears to be stated age is alert. Behavior: Patient is seated comfortably but became easily agitated and hysterical during the interview. Speech: Patient's speech is goal-directed and nonpressured in the beginning of the session but became hysterical later Mood/Affect: Patient reports increased anxiety and affect was agitated. Suicidality/Homicidality: Patient denies any active suicidal or homicidal ideations. Perceptions: Patient denies any auditory or visual hallucinations but appears to be responding to internal cues. Though content/process: Paranoia about people trying to hurt him. Memory and concentration: AOX3, grossly intact for the purposes of this session. Judgment and insight: Limited - Labs CBC & Chem 7: 07/08/19 11:21 07/08/19 11:21 Assessment and Plan Assessment: IMPRESSIONS: [] 1. Major depressive disorder with psychotic features. Rule out bipolar disorder. 2. History of craniosynostosis Plan: PLAN: Continue inpatient care for stabilization and mood and functioning and to provide safe and structured environment. Precautions: Continue 15 minutes check for safety. Provide the patient individual, group therapy, substance use disorder counseling to give better insight and learn coping skills. Medications: Start Zyprexa Zydis 5 mg by mouth twice a day when necessary. Start Zyprexa situs 5 mg by mouth daily at bedtime. Continue Lamictal 25 mg PO bid. Monitor closely for signs and symptoms of anxiety, agitation and psychosis getting worse and possible side effects on the medications. Discharge patient to OUTPATIENT services upon a stabilization Expected LOS: 3-5 days
[2019-07-13] MEDS ORDERED: OLANZapine 10 MG VIAL IM PRN (13:58)
[2019-07-13] MEDS: OLANZapine ODT 5 MG TAB PO SCH ×2 (21:02→21:04)
[2019-07-14] MEDS: lamoTRIgine 25 MG TAB PO SCH ×2 (08:15→21:19)
[2019-07-14] MEDS: NICOTINE 14MG/24HR PATCH TRANSDERM SCH (08:16)
--- NOTE | 2019-07-14 12:27 | P.PN ---
Subjective Progress Note Date: 07/14/19 Patient was seen and chart was reviewed. Case discussed with staff. The patient reports feeling a little better today than yesterday. He reports that he had an emotional breakdown yesterday. He reports good sleep and appetite. The patient talked about having felt that the the and is being able to hear other people's thoughts. The patient reports that he feels that way since he was about 12 years old. The patient also admitted to hearing his own voice in his head. At this time patient denies any suicidal or homicidal ideations, intent or plan. Patient denies any visual hallucinations and denies any paranoia or delusions. Patient denies any side effects from the medications and has been compliant with meds. Objective - Vital Signs Vital signs: Vital Signs Temp 98.2 F 07/14/19 06:45 Pulse 78 07/14/19 06:45 Resp 17 07/14/19 06:45 BP 138/67 07/14/19 06:45 Pulse Ox 99 07/14/19 06:45 - Exam Mental Status Exam: General Appearance: Patient appears to be stated age is alert. Behavior: Patient is seated comfortably and shows no agitation. Speech: Patient's speech is goal-directed and nonpressured. Mood/Affect: Patient reports his mood was okay and affect was less constricted Suicidality/Homicidality: Patient denies any active suicidal or homicidal ideations. Perceptions: Patient denies any visual hallucinations but reports hearing his own thoughts and at times appears to be responding to internal cues. Though content/process: Paranoia about people trying to hurt him. Memory and concentration: AOX3, grossly intact for the purposes of this session. Judgment and insight: Limited - Labs CBC & Chem 7: 07/08/19 11:21 07/08/19 11:21 Assessment and Plan Assessment: IMPRESSIONS: [] 1. Major depressive disorder with psychotic features. Rule out bipolar disorder. 2. History of craniosynostosis Plan: PLAN: Continue inpatient care for stabilization and mood and functioning and to provide safe and structured environment. Precautions: Continue 15 minutes check for safety. Provide the patient individual, group therapy, substance use disorder counseling to give better insight and learn coping skills. Medications: Increase Zyprexa Zydis 10 mg by mouth daily at bedtime. Continue Zyprexa Zydis 5 mg by mouth twice a day when necessary. Continue Lamictal 25 mg PO bid. Monitor closely for signs and symptoms of anxiety, agitation and psychosis getting worse and possible side effects on the medications. Discharge patient to OUTPATIENT services upon a stabilization Expected LOS: 3-5 days
[2019-07-14] MEDS: LORazepam 1 MG TAB PO PRN (13:44)
[2019-07-14] MEDS: OLANZapine ODT 10 MG TAB PO SCH (21:19)
[2019-07-15] MEDS: NICOTINE 14MG/24HR PATCH TRANSDERM SCH (07:54)
[2019-07-15] MEDS: lamoTRIgine 25 MG TAB PO SCH ×2 (07:54→19:44)
--- NOTE | 2019-07-15 12:14 | P.PN ---
Subjective Progress Note Date: 07/15/19 Patient was seen and chart was reviewed. Case discussed with staff. The patient continues to show slow improvement in mood and functioning. He reports good sleep and appetite. The patient still reports being able to hear other people's thoughts. The patient also admitted to hearing his own voice in his head. At this time patient denies any suicidal or homicidal ideations, intent or plan. Patient denies any visual hallucinations and denies any paranoia or delusions. Patient denies any side effects from the medications and has been compliant with meds. Objective - Vital Signs Vital signs: Vital Signs Temp 97.6 F 07/15/19 06:19 Pulse 50 L 07/15/19 06:19 Resp 14 07/15/19 06:19 BP 132/71 07/15/19 06:19 Pulse Ox 99 07/14/19 06:45 - Exam Mental Status Exam: General Appearance: Patient appears to be stated age is alert. Behavior: Patient is seated comfortably and shows no agitation. Speech: Patient's speech is goal-directed and nonpressured. Mood/Affect: Patient reports his mood was okay and affect was less constricted Suicidality/Homicidality: Patient denies any active suicidal or homicidal ideations. Perceptions: Patient denies any visual hallucinations but reports hearing his own thoughts and at times appears to be responding to internal cues. Though content/process: Paranoia about people trying to hurt him. Memory and concentration: AOX3, grossly intact for the purposes of this session. Judgment and insight: Limited - Labs CBC & Chem 7: 07/08/19 11:21 07/08/19 11:21 Assessment and Plan Assessment: IMPRESSIONS: [] 1. Major depressive disorder with psychotic features. Rule out bipolar disorder. 2. History of craniosynostosis Plan: PLAN: Continue inpatient care for stabilization and mood and functioning and to provide safe and structured environment. Precautions: Continue 15 minutes check for safety. Provide the patient individual, group therapy, substance use disorder counseling to give better insight and learn coping skills. Medications: Continue Zyprexa Zydis 10 mg by mouth daily at bedtime. Continue Zyprexa Zydis 5 mg by mouth twice a day when necessary. Continue Lamictal 25 mg PO bid. Monitor closely for signs and symptoms of anxiety, agitation and psychosis getting worse and possible side effects on the medications. Discharge patient to OUTPATIENT services upon a stabilization Expected LOS: 3-5 days
[2019-07-15 13:09] VITALS: BMI 19.7
[2019-07-15] MEDS: OLANZapine ODT 10 MG TAB PO SCH (19:44)
[2019-07-16] MEDS: ACETAMINOPHEN TAB 325 MG TAB PO PRN (07:50)
[2019-07-16] MEDS: NICOTINE 14MG/24HR PATCH TRANSDERM SCH (08:22)
[2019-07-16] MEDS: lamoTRIgine 25 MG TAB PO SCH ×2 (08:22→21:01)
[2019-07-16] MEDS: OLANZapine ODT 10 MG TAB PO SCH ×2 (13:54→21:01)
--- NOTE | 2019-07-16 19:20 | PN ---
PROGRESS NOTE ADDENDUM: When I asked him about his medications, he seemed to indicate he was getting benefit from the medicine, though still also suggested some uncertainty about how much it was helping. He appears to tolerate his psychotropic medications. MENTAL STATUS: Patient sat with some restlessness. He gave fairly good eye contact. He answered questions with brief responses. At times, he would ramble and talk in a somewhat tangential manner. At times, it was hard to follow his train of thought. His affect was somewhat constricted. He had a quiet mood. He smiled some, though it was difficult to be clear whether the smile was more of an anxious smile than anything else. He seemed somewhat distressed at times. He continues to show difficulties with thought disorder, especially with references to his internal experiences and also the difficulties he has with maintaining coherent thought process. He was oriented and alert. ASSESSMENT: I will continue the current diagnosis and treatment plan. We will continue to make efforts to engage the patient in individual and group therapeutic activities. I had an extensive discussion with the patient regarding his issues of likely thought disorder. The patient was willing to consider going up on his antipsychotic. I will increase his Zyprexa to 10 mg twice a day. I reviewed indication for his medication and we discussed side effects and potential problems with metabolics. I discussed the likely time course for treatment. We briefly discussed some discharge planning issues. We will focus on stabilization and discharge planning. MARIIA / LASHON: [id number] /
--- NOTE | 2019-07-16 19:20 | PN ---
PROGRESS NOTE DATE OF SERVICE: 07/16/2019. CHIEF COMPLAINT: The patient was psychotic. He had agitation and was abusive towards family. He became aggressive and started breaking things at his home. INTERVAL HISTORY: The patient has been doing fair. He had a quiet evening last night. He comes out in the day area. He will interact some with others. He has been attending groups and generally has been appropriate in his interactions. He wanders the unit. He reports sleeping fairly well at night. Today, he has been up. He again continues to attend groups. He comes out. He will interact with others. It is noteworthy that when I talked to him, he gave mixed information about his situation. At one point, he felt he was making good progress and then at another point in the discussion, he said that he did not feel much has changed at all. He discussed some of these ideas. At times, it was difficult to follow his train of thought. He continues to report the idea that he can hear other people's thoughts. He said that for the most part, he accepts that it may be mostly something that he generates in his own head, though he also seemed to waver on this and made some suggestion that it may be coming from outside of his own thought process. He generally has had an even mood. Tends to be quiet in his manner. MMODL / IJN: [id number] /
[2019-07-17] MEDS: NICOTINE 14MG/24HR PATCH TRANSDERM SCH (08:13)
[2019-07-17] MEDS: lamoTRIgine 25 MG TAB PO SCH ×2 (08:13→20:52)
[2019-07-17] MEDS: OLANZapine ODT 10 MG TAB PO SCH ×2 (08:13→20:52)
[2019-07-17] MEDS: LORazepam 1 MG TAB PO PRN (13:20)
--- NOTE | 2019-07-17 16:21 | PN ---
PROGRESS NOTE DATE OF SERVICE: 07/17/2019. CHIEF COMPLAINT: The patient was psychotic. He had agitation, was abusive towards family. He became aggressive and started breaking things at his home. INTERVAL HISTORY: Patient has been doing fair. He had a quiet evening last night. He comes out in the day area. He tends to wander about. He did attend groups yesterday and seems to be generally appropriate in group activities. When he is out in the day area, he will wander about often with his head down not paying too much attention to things going on around him. He slept well last night. Today he has been up again. He attends groups. It is noteworthy that when I talked to him at 1st, he had a smile on his face. He responded to some questions in a reasonable way. He did not voice any significant concerns. He asked some things about discharge, though it was difficult to say he really tracked the conversation as far as what I was saying. He seemed to show a change in his demeanor and seemed to pull back and show some signs of stress in his face. When I asked him about that, he just said thank you and did not say anything more. It was noteworthy that after I talked to him, he started wander in the unit and presented in a very distressed way where he had episodes of crying. He was communicating to staff, though most of what he was communicating seemed to be disorganized and difficult to really understand the issues. He appears to tolerate his psychotropic medications. MENTAL STATUS: Patient had a fair presentation early on in the interval and then seemed to regress and his thoughts became more clouded and diffuse. He had a blunted affect. His mood became quite down and depressed. He was significantly distressed. It was difficult to be clear what the issues were. He was showing psychotic symptoms and his thought process. He voiced no thoughts of harm to self or others. He was oriented to his circumstances and surroundings. ASSESSMENT: I will continue the current diagnosis and treatment plan. At this point, I will continue his psychotropic medications the same. We may need to look at titrating up on his antipsychotic. Patient continues to show significant difficulties in his thought process and also likely thought content. We will focus on stabilization and discharge planning. MMODL / IJN: [id number] /
[2019-07-18] MEDS: lamoTRIgine 25 MG TAB PO SCH ×2 (08:57→20:45)
[2019-07-18] MEDS: OLANZapine ODT 10 MG TAB PO SCH ×2 (08:57→20:45)
[2019-07-18] MEDS: NICOTINE 14MG/24HR PATCH TRANSDERM SCH (08:57)
[2019-07-18] MEDS ORDERED: BACITRACIN 500 UNIT/GM OINT 28.4 GM TUBE TOPICAL SCH (09:00)
--- NOTE | 2019-07-18 14:53 | P.PN ---
Subjective Progress Note Date: 07/18/19 Principal diagnosis: Major depressive disorder severe with psychotic features, rule out bipolar disorder, rule out personality disorder He is a 18-year-old single male admitted to psychiatric unit with a history of suicidal ideation, homicidal ideation and aggressive behavior. I reviewed the medical record, interviewed the patient and discuss his treatment and treatment plan during team meeting. We reviewed his admission history including the behaviors and circumstances that led to this hospitalization. He denied that he is currently feeling depressed, irritable, angry or having homicidal or suicidal thoughts. He attributed this admission to a hostile relationship with his parents. During the interview, he repeatedly complained that "they" were not "listening" to him. He alleged that he is back to normal and requested to be discharged. He believes you better able to control his anger because she does not plan to return to his parents but instead will live with his brother. Yesterday afternoon he had an episode of agitation and paranoia and received 1 mg of Ativan and 5 mg olanzapine IM. Objective - Vital Signs Vital signs: Vital Signs Temp 98.7 F 07/18/19 12:00 Pulse 75 07/18/19 06:07 Resp 17 07/18/19 06:07 BP 136/90 07/18/19 06:07 Pulse Ox 97 07/18/19 06:07 Intake & Output 07/17/19 07/18/19 07/18/19 18:59 06:59 18:59 Weight 66.5 kg - Exam He presented as an odd appearing 18-year-old male with long unkempt hair and fingernails painted red and white. He made eye contact and attended to the interview. He had effeminate mannerisms. He had a blunted facial expression. He was alert and oriented to person, place and time. He showed psychomotor retardation but no abnormal movements. His speech was spontaneous with normal rate, rhythm and volume. He had no articulation difficulties. His affect was stable and appropriate. He was not irritable, angry, anxious or depressed. She denied suicidal ideation, homicidal ideation and wishes. He denied feeling hopeless, helpless or worthless. He ruminated about circumstances that led to this hospitalization previously the difficulties he experiences his relationship with his parents. He did not express ideas reference, paranoid ideation or delusions. His thinking was concrete but his associations were coherent, logical and goal directed. He did not demonstration clang associations or neologisms. He denied hallucinations and did not appear to be responding to internal stimuli. - Labs CBC & Chem 7: 07/08/19 11:21 07/08/19 11:21 Assessment and Plan Assessment: He is a man who has an odd appearance and presented with a history of anger dyscontrol and aggression. He is currently denying this having suicidal or homicidal ideation and alleges that he is able to control his temper. However, he had episode of behavioral dyscontrol yesterday required administration of intramuscular medications. Plan: Continue inpatient hospitalization due to continued aggressive behavior. Continue 6 precautions. Continue Lamictal 50 mg twice a day and titrated according to clinical response and tolerance. Continue olanzapine 10 mg by mouth twice a day and monitor for adverse effects. Continue Ativan William olanzapine when necessary for agitation or aggression. Habitrol 14 mg for smoking cessation. Encouraged continued participation in therapeutic groups and activities. Evaluate clinical status response to treatment daily basis.
[2019-07-18] MEDS: ACETAMINOPHEN TAB 325 MG TAB PO PRN (19:46)
[2019-07-19 07:13] VITALS: BP 129/78; PULSE 53; RESP 14; TEMP 98.1
[2019-07-19] MEDS: OLANZapine ODT 10 MG TAB PO SCH (08:11)
[2019-07-19] MEDS: NICOTINE 14MG/24HR PATCH TRANSDERM SCH (08:11)
[2019-07-19] MEDS: lamoTRIgine 25 MG TAB PO SCH (08:11)
--- NOTE | 2019-07-19 13:46 | P.DS ---
Providers Date of admission: 07/08/19 06:13 Attending physician: Paul Tubbs MD Consults: 07/08/19 06:19 Consult Physician Routine Consulting Provider: [facility] Consult Reason/Comments: medical h and p Do you want consulting provider notified?: Yes Primary care physician: Stated None - Discharge Diagnosis(es) (1) Major depressive disorder, recurrent severe without psychotic features Current Visit: Yes Status: Resolved Priority: High (2) Tobacco use Current Visit: Yes Status: Chronic Priority: Medium (3) Cannabis use disorder, moderate, dependence Current Visit: Yes Status: Chronic Priority: Medium Hospital Course: He is a 18-year-old single male who was admitted to the mental health with suicidal and homicidal ideation as well as aggressive behavior. The [facility] with reports of having a psychotic break with agitation and abuse of family. He was uncooperative during history taking in ER. He had been verbally and physically aggressive at home. The police were called and the patient was transported to the hospital. The patient reports that he found out a few days ago that his girlfriend was cheating on him. The patient reports getting increasingly agitated and started throwing things and breaking things. The patient was not able to calm down and his family called the police. He describes his mood as being sad he states he's been tearful lately. He indicates his sleep appetite and energy are stable. He states he was suicidal thoughts with plans to slash his throat but denies any need at the time of the interview. He does admit to having feelings of anger he admits that he had been punching things. The patient denies any auditory or visual hallucinations but appears to be responding to internal cues. He has been looking around suspiciously. The patient denies any paranoia or delusional thinking but appears to be very preoccupied. The patient has history of one inpatient psychiatric hospitalizations in August 2018. He has no history of suicide attempts. he was prescribed Abilify 15 mg in August 2018 but stopped after a few months. He was seeing a counselor that he stop seeing about a year ago. As per chart, the patient's mother reported that his previous therapist felt that he may have dissociative identity disorder. We admitted him to the psychiatric unit initially under care of Dr. Pacheco. We provided a competence a biopsychosocial assessment. The library consultant associate professor of communication completed initial physical exam and medical history and diagnosed marijuana abuse and tobacco use. The associate professor of communication recommended Habitrol for smoking cessation. He initially refused psychotropic medication but after 2 days he agreed to try Lamictal. The dose was started at 25 mg twice a day gradually titrated to 150 mg. He had several episodes of acute behavioral dyscontrol that required administration of IM medication; during one episode on 07/12/2019 he did not calm with intramuscular medications and required a brief episode of seclusion and restraint. After the episode of seclusion restraint restarted Zyprexa and titrated dose to 10 mg twice a day. His last episode of behavioral dyscontrol was on 07/17/2019. He participated in therapeutic groups and activities. He interacted appropriately with both staff and peers. He attributed to difficulties at home to his parents whom he described as critical and unsupportive. He plans to live responded after discharge. During our brief time working together he gave the impression that he does not believe that he has a mental illness and was ambivalent about continuing his medication and following through with mental health treatment. At time of discharge she presented as a tall casually groomed young male with long hair that partially covered his face. His fingernails were painted red and white. He made eye contact and appeared to attend to the interview. He had a blunted facial expression. He was alert and oriented to person, place and time. He showed slight psychomotor retardation but no abnormal movements. His speech was spontaneous with normal rate, rhythm and volume. His affect was stable and appropriate. He denied suicidal ideation, wishes or homicidal ideation. He denied feeling hopeless, helpless or worthless. He did not express ideas reference, paranoid ideation, magical ideation or delusions. His thinking was concrete but his associations were coherent, logical and goal directed. He denied hallucinations did not appear to be responding to internal stimuli. Patient Condition at Discharge: Fair Plan - Discharge Summary New Discharge Prescriptions: New lamoTRIgine [LaMICtal] 50 mg PO DAILY #60 tab lamoTRIgine [LaMICtal] 100 mg PO HS #30 tab OLANZapine ODT [ZyPREXA Zydis] 10 mg PO BID #30 tab Continue Nicotine 14Mg/24Hr Patch [Habitrol] 1 patch TRANSDERM DAILY #14 patch Discontinued ARIPiprazole [Abilify] 15 mg PO DAILY #30 tab Discharge Medication List Nicotine 14Mg/24Hr Patch [Habitrol] 1 patch TRANSDERM DAILY #14 patch 09/06/18 [Rx] OLANZapine ODT [ZyPREXA Zydis] 10 mg PO BID #30 tab 07/19/19 [Rx] lamoTRIgine [LaMICtal] 50 mg PO DAILY #60 tab 07/19/19 [Rx] lamoTRIgine [LaMICtal] 100 mg PO HS #30 tab 07/19/19 [Rx] Follow up Appointment(s)/Referral(s): Arun B[facility] [Other] - 07/22/19 8:30 am ([facility] phone intake between 8:30 am- 9:00am) None,Stated [Primary Care Provider] - 1-2 days Patient Instructions/Handouts: How to Stop Smoking (DC), Mood Disorders (DC), Depression (DC) Activity/Diet/Wound Care/Special Instructions: Activity and diet as tolerated. Avoid the use of street drugs and alcohol. Take all medications as prescribed. When you are in need of refills on your medications please contact your medical provider and/or outpatient psychiatrist to have this done. Please go to scheduled outpatient appointment for aftercare treatment. If symptoms return or become worse, call the crisis line at and/or go to the nearest emergency room for evaluation. Discharge Disposition: HOME SELF-CARE
[2019-07-19] MEDS ORDERED: lamoTRIgine 100 MG TAB PO SCH (21:00)
[2019-07-20] MEDS ORDERED: lamoTRIgine 25 MG TAB PO SCH (09:00)
== END 2019-07-19 14:55 | disposition home or self-care (01) | DRG 885 ==
LOC: EC 03:01 → 3MHU 06:13
PROVIDERS: ADMIT Psychiatry & Neurology Psychiatry; ATTEND Psychiatry & Neurology Psychiatry
DX: F33.3 Major depressive disorder, recurrent, severe with psychotic symptoms (principal); R45.851 Suicidal ideations; R45.850 Homicidal ideations; F12.20 Cannabis dependence, uncomplicated; F41.9 Anxiety disorder, unspecified; L70.0 Acne vulgaris; Z78.1 Physical restraint status; F17.200 Nicotine dependence, unspecified, uncomplicated; Z71.6 Tobacco abuse counseling; Z79.899 Other long term (current) drug therapy; Z87.798 Personal history of other (corrected) congenital malformations; Z81.8 Family history of other mental and behavioral disorders
CPT/HCPCS: 80053; 80061; 80306; 81003; 82075; 82248; 83036; 84443; 85025; 96372; 99285

== ENCOUNTER 2019-10-21 12:48 | Emergency (ER) | payer OTHER ==
[2019-10-21 13:01] VITALS: RESP 18
--- NOTE | 2019-10-21 13:37 | ED ---
General Adult HPI - General Chief complaint: Psychiatric Symptoms Stated complaint: petitioned Time Seen by Provider: 10/21/19 13:04 Source: patient, RN notes reviewed Mode of arrival: ambulatory Limitations: no limitations - History of Present Illness Initial comments: Patient is a pleasant 19-year-old male presenting to the emergency department with Court order. Patient was assigned visits and missed one of his visits. Father is unclear if patient could amiss more than one. Father is present. Father states he does them and patient has been doing very well recently. Patient also believes he is doing well. Patient denies suicidal or homicidal thoughts. Patient states he has been eating well and sleeping well and taking his medication. - Related Data Previous Rx's Medication Instructions Recorded Nicotine 14Mg/24Hr Patch [Habitrol] 1 patch TRANSDERM DAILY #14 patch 09/06/18 OLANZapine ODT [ZyPREXA Zydis] 10 mg PO BID #30 tab 07/19/19 lamoTRIgine [LaMICtal] 50 mg PO DAILY #60 tab 07/19/19 lamoTRIgine [LaMICtal] 100 mg PO HS #30 tab 07/19/19 Allergies Allergy/AdvReac Type Severity Reaction Status Date / Time No Known Allergies Allergy Verified 10/21/19 13:01 Review of Systems ROS Statement: Those systems with pertinent positive or pertinent negative responses have been documented in the HPI. ROS Other: All systems not noted in ROS Statement are negative. Constitutional: Denies: fever Eyes: Denies: eye pain ENT: Denies: ear pain Respiratory: Denies: cough Cardiovascular: Denies: chest pain Endocrine: Denies: fatigue Gastrointestinal: Denies: abdominal pain Genitourinary: Denies: dysuria Musculoskeletal: Denies: back pain Skin: Denies: rash Neurological: Denies: weakness Past Medical History Past Medical History: No Reported History Additional Past Medical History / Comment(s): cranial cystosis, DID History of Any Multi-Drug Resistant Organisms: None Reported Additional Past Surgical History / Comment(s): head sx as a baby Past Psychological History: No Psychological Hx Reported Smoking Status: Never smoker Past Alcohol Use History: None Reported Past Drug Use History: None Reported General Exam Limitations: no limitations General appearance: alert, in no apparent distress Head exam: Present: normocephalic Eye exam: Present: normal appearance Neck exam: Present: normal inspection Respiratory exam: Present: normal lung sounds bilaterally Cardiovascular Exam: Present: regular rate, normal rhythm GI/Abdominal exam: Present: soft. Absent: tenderness Extremities exam: Present: normal inspection Neurological exam: Present: alert Psychiatric exam: Present: other (Patient does appear slightly upset however he and father states this is from being brought to the emergency department under police custody.) Skin exam: Present: normal color Course Vital Signs 10/21/19 12:57 Temperature 98.6 F Pulse Rate 100 Respiratory 18 Rate Blood Pressure 134/78 O2 Sat by Pulse 96 Oximetry Medical Decision Making - Medical Decision Making Patient was seen by mental health services who did discuss case with Olga at [facility] and Dr. Dumont and is comfortable with discharge. Patient reevaluated. Patient and father both comfortable with discharge home. - Lab Data Lab Results 10/21/19 Range/Units 13:31 Urine Opiates Screen Not Detected (NotDetected) Ur Oxycodone Screen Not Detected (NotDetected) Urine Methadone Screen Not Detected (NotDetected) Ur Propoxyphene Screen Not Detected (NotDetected) Ur Barbiturates Screen Not Detected (NotDetected) U Tricyclic Antidepress Not Detected (NotDetected) Ur Phencyclidine Scrn Not Detected (NotDetected) Ur Amphetamines Screen Not Detected (NotDetected) U Methamphetamines Scrn Not Detected (NotDetected) U Benzodiazepines Scrn Not Detected (NotDetected) Urine Cocaine Screen Not Detected (NotDetected) U Marijuana (THC) Screen Detected H (NotDetected) Disposition Clinical Impression: Unspecified psychosis Disposition: HOME SELF-CARE Condition: Stable Instructions (If sedation given, give patient instructions): Cannabis Abuse (ED), Psychotic Disorder (ED) Additional Instructions: Please follow-up with mental health services as directed. Do not miss appointments. Please also follow-up with primary care physician. Return for depression, thoughts of harming self or others, worsening symptoms or other concerns. Is patient prescribed a controlled substance at d/c from ED?: No Referrals: Maxine Brown MD [REFERRING] - 1-2 days Time of Disposition: 14:21
[2019-10-21 14:09] LABS: Amphetamine Screen,Urine Not Detected (NotDetected); Barbiturate Screen,Urine Not Detected (NotDetected); Benzodiazepines Screen,Urine Not Detected (NotDetected); Cocaine Screen,Urine Not Detected (NotDetected); Methadone Screen, Urine Not Detected (NotDetected); Opiate Screen,Urine Not Detected (NotDetected); Oxycodone Screen, Urine Not Detected (NotDetected); Phencyclidine Screen,Urine Not Detected (NotDetected); Tricyclic Antidepressant,Urine Not Detected (NotDetected); Urn Cannabinoid Scrn Detected (NotDetected)
[2019-10-21 14:23] VITALS: BP 126/62; PULSE 62; TEMP 97.9
== END 2019-10-21 14:30 | disposition home or self-care (01) ==
LOC: EC 12:48
DX: F29 Unspecified psychosis not due to a substance or known physiological condition (principal)
CPT/HCPCS: 80306; 82075; 99284